=== PATIENT | female | born 1980 | race Caucasian/White ===

== ENCOUNTER 2018-02-10 23:46 | Emergency (ER) | payer OTHER ==
[~2018-02-10] VITALS: Ht 180.3 cm; Wt 77.1 kg
[2018-02-11] MEDS ORDERED: THYROID (00:12)
[2018-02-11] MEDS ORDERED: HYDROCODONE/APAP 10-325 MG TABLET PO ONE (00:45)
[2018-02-11] MEDS ORDERED: HYDROCODONE/APAP 10-325 MG TABLET ONE (00:47)
--- NOTE | 2018-02-11 00:47 | NUR ---
Patient discharged to home in stable conditon. Written and verbal after care instructions given. Patient verbalizes understanding of instructions. Pt left ER in steady gait with friend who will drive home. All belongings with pt. VSS. No acute distress noted.
[2018-02-11 00:48] VITALS: BP 119/74
== END 2018-02-11 00:49 | disposition home or self-care (01) ==
LOC: ER 23:48
DX: S16.1XXA Strain of muscle, fascia and tendon at neck level, initial encounter (principal); Z79.899 Other long term (current) drug therapy; V43.52XA Car driver injured in collision with other type car in traffic accident, initial encounter; Y93.89 Activity, other specified; Y92.410 Unspecified street and highway as the place of occurrence of the external cause; Y99.8 Other external cause status
CPT/HCPCS: 72072; A4663

== ENCOUNTER 2021-02-08 23:40 | Emergency (ER) | payer OTHER ==
[~2021-02-08] VITALS: Ht 177.8 cm; Wt 86.2 kg
[~2021-02-08 23:40] MED LIST: THYROID
--- NOTE | 2021-02-08 23:49 | NUR ---
Patient walked into ER for c/o right ear pain x 1 day.
--- NOTE | 2021-02-08 23:50 | NUR ---
Dr. Ramirez at bedside for MSE.
[2021-02-09] MEDS ORDERED: FLUCONAZOLE 100 MG TABLET PO ONE
[2021-02-09] MEDS ORDERED: OXYC-128 PO (00:05)
[2021-02-09] MEDS ORDERED: ACET15SO4 EACH EAR (00:05)
[2021-02-09] MEDS ORDERED: FLUC100T8 PO (00:05)
[2021-02-09] MEDS ORDERED: FLUCONAZOLE 100 MG TABLET ONE (00:10)
[2021-02-09 00:14] VITALS: BP 135/96
--- NOTE | 2021-02-09 00:14 | NUR ---
Patient discharged to home in stable condition. Written and verbal after care instructions given. Patient verbalizes understanding of instructions. Stressed follow up or return to ER for worsening s/s.
== END 2021-02-09 00:15 | disposition home or self-care (01) ==
LOC: ER 23:46
DX: B36.9 Superficial mycosis, unspecified (principal); H62.41 Otitis externa in other diseases classified elsewhere, right ear
CPT/HCPCS: A4663

== ENCOUNTER 2023-09-02 21:17 | Emergency (ER) | payer OTHER ==
[~2023-09-02] VITALS: Ht 177.8 cm; Wt 86.2 kg
[~2023-09-02 21:17] MED LIST changes: +ACET15SO4 EACH EAR; +FLUC100T8 PO; +OXYC-128 PO
[2023-09-02] MEDS ORDERED: diphenhydrAMINE 25 MG CAP PO ONE ×2 (23:15→23:16)
[2023-09-02] MEDS ORDERED: KETOROLAC TROMETHAMINE 30 MG INJ IM ONE (23:15)
[2023-09-02] MEDS ORDERED: METOCLOPRAMIDE HCL 10 MG TABLET PO ONE (23:15)
[2023-09-02] MEDS ORDERED: KETOROLAC TROMETHAMINE 30 MG INJ ONE (23:16)
[2023-09-02] MEDS ORDERED: METOCLOPRAMIDE HCL 10 MG TABLET ONE (23:17)
[2023-09-02 23:30] LABS: BASOPHILS % (AUTO) 0.6 % (0.0-2.0); EOSINOPHILS # (AUTO) 0.4 K/uL (0.0-0.7); EOSINOPHILS % (AUTO) 5.3 % (0.0-7.0); HEMOGLOBIN 12.8 g/dL (10.9-14.3); LYMPHOCYTES # (AUTO) 2.4 K/uL (0.8-4.8); LYMPHOCYTES % (AUTO) 31.9 % (20.5-51.5); MEAN CORPUSCULAR HEMOGLOBIN 26.7 uug (24.7-32.8); MEAN CORPUSCULAR HGB CONC 33 g/dL (32.3-35.6); MEAN CORPUSCULAR VOLUME 81.5 fL (75.5-95.3); MONOCYTES # (AUTO) 0.5 K/uL (0.1-1.30); MONOCYTES % (AUTO) 6.1 % (0.0-11.0); NEUTROPHILS # (AUTO) 4.2 K/uL (1.8-8.9); NEUTROPHILS % (AUTO) 56.1 % (38.5-71.5); PLATELET COUNT (AUTO) 304 K/uL (179-408); RED BLOOD CELL COUNT(AUTO) 4.79 MIL/uL (3.63-4.92); WHITE BLOOD COUNT (AUTO) 7.5 K/uL (3.8-11.8)
[2023-09-02 23:34] LABS: DIFFERENTIAL COMMENT 1
[2023-09-02 23:40] LABS: CALCIUM 8.8 mg/dL (8.5-10.1); CREATININE 0.9 mg/dL (0.6-1.3); POTASSIUM 3.7 mmol/L (3.5-5.1)
[2023-09-02 23:45] LABS: ALBUMIN 3.7 g/dL (3.4-5.0); BILIRUBIN,TOTAL 0.2 mg/dL (0.2-1.0); TOTAL PROTEIN, SERUM 7.9 g/dL (6.4-8.2)
[2023-09-02 23:51] LABS: ERYTHROCYTE SEDIMENTATION RATE 15 MM/HR (0-20)
[2023-09-03 01:05] LABS: *URINE HCG, QUAL NEGATIVE (NEGATIVE)
[2023-09-03 01:30] VITALS: BP 118/16; TEMP 97.9; O2SAT 99
== END 2023-09-03 01:32 | disposition home or self-care (01) ==
LOC: ER 21:31
DX: R51.9 Headache, unspecified (principal); E03.9 Hypothyroidism, unspecified; R10.2 Pelvic and perineal pain; F17.200 Nicotine dependence, unspecified, uncomplicated; Z79.899 Other long term (current) drug therapy
CPT/HCPCS: 99283; 80053; 85025; 85651; 36415; 96372; 84703; Q0163; J1885; A4606; A4663; J8597

== ENCOUNTER → 2025-04-25 | Emergency (ER) | payer MEDICARE, OTHER ==
[~2025-04-25] VITALS: Ht 177.8 cm; Wt 86.2 kg
[~2025-04-25] MED LIST changes: +HYDR-4209 PO; +NEOMY/POLYMYX B/HC OTIC SOL 10 ML BOTTLE ONE
[2025-04-25 21:47] VITALS: BP 116/60
[2025-04-25] MEDS: NEOMY/POLYMYX B/HC OTIC SOL 10 ML BOTTLE OT ONE (22:05)
[2025-04-25 22:29] VITALS: BP 116/60; TEMP 98.3; O2SAT 98
== END | disposition home or self-care (01) ==
LOC: ER 21:55
DX: H60.91 Unspecified otitis externa, right ear (principal); F17.290 Nicotine dependence, other tobacco product, uncomplicated
CPT/HCPCS: A4606; A4663; J3590